=== PATIENT | female | born 1980 | race Caucasian/White ===

== ENCOUNTER 2016-08-07 20:59 | Emergency (ER) | payer BC, OTHER ==
[~2016-08-07] VITALS: Ht 170.2 cm; Wt 97.3 kg
[~2016-08-07 20:59] MED LIST: IBUP-1459 PO; PHEN37.585 PO; PRENTAB26 PO
[2016-08-07 21:03] VITALS: BP 143/98; PULSE 77; TEMP 36.8; O2SAT 99; Ht 170.2 cm; Wt 97.3 kg
[2016-08-07] MEDS ORDERED: MULT-506 PO (21:35)
--- NOTE | 2016-08-07 22:02 | DIAGNOSTIC IMAGING REPORT ---
RIGHT SHOULDER MIN 2 VIEWS ROUTINE CLINICAL HISTORY: right Right pain COMPARISON: None. DISCUSSION: The bones and joint spaces appear intact. There is no evidence of fracture, dislocation or bony disease. There is no evidence for soft tissue swelling. IMPRESSION: Negative study. Electronically signed by: John Pearl M.D. 08/07/2016 10:00 PM Dictated Date/Time: 08/07/2016 10:00 PM
[2016-08-07] MEDS ORDERED: OXYC-57 PO (22:34)
--- NOTE | 2016-08-07 22:35 | EMERGENCY ROOM VISIT NOTE ---
ED Visit Note First contact with patient: 21:36 CHIEF COMPLAINT: Right shoulder pain 3-4 months HISTORY OF PRESENT ILLNESS: Patient is a [id number] 36-year-old white female who presents emergency department for evaluation of right shoulder pain that has been ongoing for 3-4 months. She complains of pain in the top of the shoulder that radiates slightly toward her neck. It has been tolerable for several months, but has gotten worse in the last few weeks. She has tried Tylenol, ibuprofen, ice and heat to the area. She states that her symptoms are worse at bedtime. She has any pain when she tries to use the shoulder above shoulder height. There is no injury or unusual activity prior to the onset of her pain. She has not previously sought medical attention for her ongoing shoulder pain. She rates her discomfort a 6/10. She notes some cracking and popping with range of motion at times. REVIEW OF SYSTEMS: Review of systems as per HPI. All other systems reviewed were negative. At least 6 systems reviewed. PMH: Electronic medical records are reviewed and summarized as above/below. See Problem List. SOCIAL HISTORY: Patient lives at home. 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 Nonsmoker. PHYSICAL EXAM: Vital Signs: Reviewed nurse's notes. Examination of the right shoulder does not note any obvious deformity. She has slight discomfort to palpation in the right trapezius without palpable spasm. Cervical spine range of motion is full. She does not have any discomfort over the clavicle or the acromioclavicular joint. She does have some discomfort over the rotator cuff insertion on the proximal biceps tendon. Passive internal and external rotation are full. She can flex and abduct to 90, has pain beyond that. She does have some impingement with range of motion. Strength is limited only by pain. The right upper extremity is neurovascularly intact. EMERGENCY DEPARTMENT COURSE: X-rays of the right shoulder were obtained and were negative for acute pathology. The patient was advised that she would likely need to follow-up with orthopedics for further care and evaluation of her ongoing shoulder pain. Differential diagnoses entertained includes rotator cuff tear, rotator cuff tendinitis, biceps tendinitis, subacromial bursitis, among others. She declined an arm sling. She was given Percocet for pain. Patient was reviewed in the [facility] Prescription Drug Monitoring Program, and there were no red flags noted. RIGHT SHOULDER MIN 2 VIEWS ROUTINE CLINICAL HISTORY: right Right pain COMPARISON: None. DISCUSSION: The bones and joint spaces appear intact. There is no evidence of fracture, dislocation or bony disease. There is no evidence for soft tissue swelling. IMPRESSION: Negative study. Problem List Medical Problems: (1) Crush injury of foot Status: Resolved (2) Left ovarian cyst Status: Resolved (3) Spontaneous Status: Resolved Surgical Problems: (1) H/O section Status: Resolved (2) S/P dilatation and curettage Status: Resolved Current/Historical Medications Scheduled Multivitamin (Multivitamin), 1 TAB PO DAILY Scheduled PRN Ibuprofen (Motrin), 400 MG PO DAILY PRN for Pain Oxycodone/Acetaminophen 5MG/325MG (Percocet 5MG/325MG), 1-2 TABS PO Q4 PRN for Pain Allergies Coded Allergies: Hydrocodone (Verified Allergy, Unknown, GI UPSET, DIZZY, 08/07/16) Tramadol (Verified Adverse Reaction, Mild, ill, dizzy, 08/07/16) Aspirin (Verified Adverse Reaction, Unknown, NAUSEA, 08/07/16) Vital Signs Date Time Temp Pulse Resp B/P Pulse Ox O2 Delivery O2 Flow Rate FiO2 08/07/16 21:03 36.8 77 18 143/98 99 Room Air Medications Administered Medications (Trade) Dose Ordered Sig/Diana Route Start Time Stop Time Status Last Admin Dose Admin Oxycodone/ Acetaminophen (Percocet 5/ 325MG Home Pack) 1 homepack UD ONCE PO 08/07/16 22:45 08/07/16 22:46 DC 08/07/16 22:45 1 HOMEPACK Departure Information Impression Primary Impression: Right shoulder pain Prescriptions Oxycodone/Acetaminophen 5MG/325MG (PERCOCET 5MG/325MG) Tab 1-2 TABS PO Q4 Y for Pain, #15 TAB For Initial Treatment Prov: Roxy Soriano PA 08/07/16 Referrals Brian Medrano DO (PCP) Patient Instructions My [facility] Additional Instructions DO NOT drive, drink alcohol, operate machinery, or perform dangerous activities today. You were given medications in the ER that can affect your ability to safely function or operate a vehicle. Percocet 5/325 mg: Take 1-2 pills every four hours for breakthrough pain. Avoid alcohol, operating machinery or dangerous equipment, working on ladders or roofs, DRIVING, or situations where being under the influence may be dangerous. It is recommended to use an ikuo-aqd-jhttasc stool softener such as Colace, 100mg twice daily while taking this medication to avoid constipation. Ibuprofen(Motrin, Advil) may be used for fever or pain. Use 600mg every six hours as needed. Take with food. Avoid using more than 2400mg in a 24 hour period. Do not use 2400mg per day for more than three consecutive days without physician direction. Prolonged inappropriate use can lead to stomach upset or ulcers. This medication can be taken if you need to drive, work, or perform activities which may be dangerous when taking narcotic pain medication. (AND/OR) Acetaminophen(Tylenol) may be used for fever or pain. Use 1000mg every six hours as needed. Avoid using more than 3000mg in a 24 hour period. This medication can be taken if you need to drive, work, or perform activities which may be dangerous when taking narcotic pain medication. Ice compresses for 20 minutes at a time four times daily for 2-3 days. Rest and elevate your injury. Continue current medications. Return to the ER immediately for any numbness, tingling, severe pain, extreme swelling in the extremity or as needed. Follow-up with your primary care provider for referral to orthopedic surgery.
[2016-08-07] MEDS ORDERED: PERCOCET HOME PACK PO ONE (22:45)
== END 2016-08-07 22:50 | disposition home or self-care (01) ==
LOC: C.EDB 21:01 → C.EDD 22:50
DX: M25.511 Pain in right shoulder (principal)